=== PATIENT | female | born 1935 | race Caucasian/White ===

== ENCOUNTER 2021-02-26 14:42 | Inpatient (IN) | payer MEDICARE ==
[~2021-02-26 14:42] MED LIST: Iopamidol-370 76% 500 ML 1 ML ONE
[2021-02-26 15:22] LABS: Hemoglobin 12.3 g/dL (12.0-16.0); Mean Corpuscular Hemoglobin 26.4 pg (27.0-31.0); Mean Corpuscular Volume 82.7 fL (78.0-98.0); Mean Platelet Volume 8.4 fL (7.4-10.4); Platelet Count 199 thou/uL (130-400); RBC Distribution Width 14.6 % (11.5-14.5); Red Blood Cell (RBC) Count 4.66 mill/uL (4.20-5.40); White Blood Cell (WBC) Count 19.9 thou/uL (4.8-10.8)
[2021-02-26] MEDS ORDERED: cefTRIAXone\\ROCEPHIN 1 GM VIAL ONE (15:38)
[2021-02-26 15:42] LABS: ALT (SGPT) 7 U/L (8-55); AST (SGOT) 15 U/L (5-34); Albumin 3.2 g/dL (3.4-4.8); Alkaline Phosphatase 73 U/L (40-110); Anion Gap 12 mmol/L (10-20); BUN (Urea Nitrogen) 10 mg/dL (9.8-20.1); Bilirubin, Total 0.8 mg/dL (0.2-1.2); Calc. Creatinine Clearance 0 mL/min (70-130); Calcium 8.3 mg/dL (7.8-10.44); Carbon Dioxide 27 mmol/L (23-31); Chloride 99 mmol/L (98-107); Globulin 3.3 g/dL (2.4-3.5); Glucose 175 mg/dL (83-110); Potassium 3.6 mmol/L (3.5-5.1); Protein, Total 6.5 g/dL (5.8-8.1); Sodium 134 mmol/L (136-145)
[2021-02-26 15:44] LABS: Band 15 % (5-11); Lymphocytes 4 % (21-51); MDiff Complete? YES; Monocytes 5 % (0-10); Neutrophil 76 % (42-75); Platelet Morphology Comment Appears Adequate; RBC Morphology Normal
[2021-02-26] MEDS ORDERED: Azithromycin 500 MG VIAL ONE (16:39)
[2021-02-26 18:14] LABS: Lactic Acid 1.6 mmol/L (0.5-2.2)
[2021-02-26 19:31] VITALS: BMI 25.4
[2021-02-26] MEDS ORDERED: Guaifenesin DM 100-10/5 ML UDCUP PO PRN (19:35)
[2021-02-26] MEDS ORDERED: Ondansetron PF 4 MG/2 ML Vial IVP PRN (19:35)
[2021-02-26] MEDS ORDERED: Senokot S 8.6-50 MG TAB PO PRN (19:35)
[2021-02-26] MEDS ORDERED: Bisacodyl 5 MG TAB PO PRN (19:35)
[2021-02-26] MEDS ORDERED: Labetalol HCl 100 MG/20 ML VIAL SLOW IVP PRN (19:52)
[2021-02-26] MEDS ORDERED: Melatonin 3 MG TAB PO PRN (19:53)
[2021-02-26] MEDS ORDERED: Dextrose 5% in Water 1,000 ML IV PRN (19:54)
[2021-02-26] MEDS ORDERED: Dextrose 50% Abboject 50 ML SYRINGE SLOW IVP PRN (19:54)
[2021-02-26] MEDS: Sodium Chloride 0.9% 1,000 ML IV SCH (21:10)
[2021-02-26] MEDS: Famotidine/PF 20 mg/2ml Vial SLOW IVP SCH (21:14)
[2021-02-26] MEDS: Enoxaparin Sodium 40 MG/0.4 ML SYRINGE SC SCH (21:14)
[2021-02-27 06:58] LABS: #Lymphocytes 2.5 thou/uL (1.20-3.40); #Monocytes 1.4 thou/uL (0.11-0.59); #Neutrophils 13.9 thou/uL (1.40-6.50); %Basophils 0.3 % (0.0-1.0); %Eosinophils 0.2 % (0.0-10.0); %Lymphocytes 13.7 % (21.0-51.0); %Neutrophils 77.8 % (42.0-75.0); Hemoglobin 11.9 g/dL (12.0-16.0); Mean Corpuscular HGB CONC 30.7 g/dL (32.0-36.0); Mean Corpuscular Volume 84.8 fL (78.0-98.0); Mean Platelet Volume 8.7 fL (7.4-10.4); Platelet Count 194 thou/uL (130-400); RBC Distribution Width 14.6 % (11.5-14.5); Red Blood Cell (RBC) Count 4.56 mill/uL (4.20-5.40); White Blood Cell (WBC) Count 17.9 thou/uL (4.8-10.8)
[2021-02-27 07:18] LABS: Hemoglobin A1c 5.6 % (4.0-6.0)
[2021-02-27 07:25] LABS: ALT (SGPT) Less than 7 U/L (8-55); AST (SGOT) 14 U/L (5-34); Albumin 3.2 g/dL (3.4-4.8); Alkaline Phosphatase 75 U/L (40-110); Anion Gap 11 mmol/L (10-20); BUN (Urea Nitrogen) 8 mg/dL (9.8-20.1); Bilirubin, Total 0.6 mg/dL (0.2-1.2); Calc. Creatinine Clearance 62 mL/min (70-130); Calcium 8.5 mg/dL (7.8-10.44); Carbon Dioxide 26 mmol/L (23-31); Cardiac Risk 2.8 (Less than 4.5); Chloride 104 mmol/L (98-107); Cholesterol 108 mg/dl (< 200 Desired); Glucose 92 mg/dL (83-110); HDL Cholesterol 38 mg/dL (>60 Neg Risk); LDL Cholesterol, Calculated 59 mg/dL; Potassium 3.7 mmol/L (3.5-5.1); Protein, Total 6.2 g/dL (5.8-8.1); Sodium 137 mmol/L (136-145); Triglycerides 56 mg/dL (Less than 150)
[2021-02-27] MEDS: Enoxaparin Sodium 40 MG/0.4 ML SYRINGE SC SCH ×2 (08:47→21:00)
[2021-02-27] MEDS: Famotidine/PF 20 mg/2ml Vial SLOW IVP SCH (08:47)
[2021-02-27] MEDS: Sodium Chloride 0.9% 1,000 ML IV SCH (08:48)
[2021-02-27 09:19] LABS: SARS-CoV-2 PCR by NAA Not Detected (NotDetected)
[2021-02-27] MEDS ORDERED: Carvedilol 3.125 MG TAB PO SCH (10:15)
[2021-02-27 10:41] LABS: Bilirubin Negative (Negative); Blood, Urine Trace (Negative); Clarity Clear (Clear); Glucose, Urine (Dipstick) Normal (Negative); Ketone, Urine Negative (Negative); Leukocyte 500 Leu/uL (Negative); Nitrite Negative (Negative); Protein, Urine (Dipstick) 20 mg/dL (Neg-Trace); Specific Gravity, Urine 1.039 (1.002-1.036); Squamous Epithelial 0-3 HPF (0-3); Urobilinogen Normal mg/dL (Less than 2)
[2021-02-27 10:42] LABS: Bacteria/HPF 1+ HPF (None Seen); WBC/HPF 21-50 HPF (0-3)
[2021-02-27 10:43] LABS: Urine Culture Reflex Yes Yes
[2021-02-27] MEDS: busPIRone HCl 5 MG TAB PO SCH ×2 (16:13→21:01)
[2021-02-27] MEDS: cefTRIAXone\\ROCEPHIN 1 GM in Sodium Chloride 0.9% 100 ML IVPB SCH (16:13)
[2021-02-27] MEDS: Azithromycin 500 MG in Sodium Chloride 0.9% 250 ML 250 ML IVPB SCH (16:57)
[2021-02-27] MEDS: Mirtazapine 15 MG Soltab PO SCH (21:01)
[2021-02-27] MEDS: Carvedilol 3.125 MG TAB PO SCH (21:02)
[2021-02-28 04:53] LABS: #Eosinphils 0.1 thou/uL (0.0-0.7); #Lymphocytes 2.1 thou/uL (1.20-3.40); #Monocytes 1.3 thou/uL (0.11-0.59); #Neutrophils 9.6 thou/uL (1.40-6.50); %Basophils 0.2 % (0.0-1.0); %Eosinophils 0.7 % (0.0-10.0); %Neutrophils 73.2 % (42.0-75.0); Hemoglobin 10.8 g/dL (12.0-16.0); Mean Corpuscular HGB CONC 29.9 g/dL (32.0-36.0); Mean Corpuscular Hemoglobin 25.5 pg (27.0-31.0); Mean Corpuscular Volume 85.2 fL (78.0-98.0); Mean Platelet Volume 8.3 fL (7.4-10.4); Platelet Count 201 thou/uL (130-400); RBC Distribution Width 14.7 % (11.5-14.5); Red Blood Cell (RBC) Count 4.24 mill/uL (4.20-5.40); White Blood Cell (WBC) Count 13.1 thou/uL (4.8-10.8)
[2021-02-28 05:11] LABS: Anion Gap 8 mmol/L (10-20); BUN (Urea Nitrogen) 8 mg/dL (9.8-20.1); Calc. Creatinine Clearance 71 mL/min (70-130); Calcium 8.4 mg/dL (7.8-10.44); Carbon Dioxide 30 mmol/L (23-31); Chloride 101 mmol/L (98-107); Glucose 88 mg/dL (83-110); Potassium 3.7 mmol/L (3.5-5.1); Sodium 135 mmol/L (136-145)
[2021-02-28] MEDS: Levothyroxine Sodium 88 MCG TAB PO SCH (06:30)
[2021-02-28] MEDS: Enoxaparin Sodium 40 MG/0.4 ML SYRINGE SC SCH ×2 (09:31→20:51)
[2021-02-28] MEDS: Losartan 25 MG TAB PO SCH (09:31)
[2021-02-28] MEDS: busPIRone HCl 5 MG TAB PO SCH ×3 (09:32→20:50)
[2021-02-28] MEDS: Carvedilol 3.125 MG TAB PO SCH ×2 (09:32→20:50)
[2021-02-28] MEDS: cefTRIAXone\\ROCEPHIN 1 GM in Sodium Chloride 0.9% 100 ML IVPB SCH (15:32)
[2021-02-28] MEDS: Acetaminophen 325 MG TAB PO PRN ×2 (15:34→20:50)
[2021-02-28] MEDS: Azithromycin 500 MG in Sodium Chloride 0.9% 250 ML 250 ML IVPB SCH (16:49)
[2021-02-28] MEDS: Mirtazapine 15 MG Soltab PO SCH (20:50)
[2021-03-01 05:13] LABS: #Basophils 0.1 thou/uL (0.0-0.2); #Eosinphils 0.2 thou/uL (0.0-0.7); #Lymphocytes 1.8 thou/uL (1.20-3.40); #Monocytes 1.1 thou/uL (0.11-0.59); #Neutrophils 7.2 thou/uL (1.40-6.50); %Basophils 0.5 % (0.0-1.0); %Eosinophils 1.8 % (0.0-10.0); %Lymphocytes 17.1 % (21.0-51.0); %Monocytes 10.7 % (0.0-10.0); %Neutrophils 69.9 % (42.0-75.0); Hemoglobin 12.1 g/dL (12.0-16.0); Mean Corpuscular HGB CONC 31.4 g/dL (32.0-36.0); Mean Corpuscular Hemoglobin 26.8 pg (27.0-31.0); Mean Corpuscular Volume 85.4 fL (78.0-98.0); Mean Platelet Volume 8.4 fL (7.4-10.4); Platelet Count 239 thou/uL (130-400); RBC Distribution Width 14.8 % (11.5-14.5); Red Blood Cell (RBC) Count 4.51 mill/uL (4.20-5.40); White Blood Cell (WBC) Count 10.2 thou/uL (4.8-10.8)
[2021-03-01] MEDS: Levothyroxine Sodium 88 MCG TAB PO SCH (05:17)
[2021-03-01 05:32] LABS: Anion Gap 10 mmol/L (10-20); BUN (Urea Nitrogen) 9 mg/dL (9.8-20.1); Calc. Creatinine Clearance 75 mL/min (70-130); Calcium 8.8 mg/dL (7.8-10.44); Carbon Dioxide 28 mmol/L (23-31); Chloride 101 mmol/L (98-107); Glucose 85 mg/dL (83-110); Potassium 3.9 mmol/L (3.5-5.1); Sodium 135 mmol/L (136-145)
[2021-03-01] MEDS: Acetaminophen 325 MG TAB PO PRN ×2 (08:47→18:56)
[2021-03-01] MEDS: Enoxaparin Sodium 40 MG/0.4 ML SYRINGE SC SCH ×2 (08:48→20:49)
[2021-03-01] MEDS: Carvedilol 3.125 MG TAB PO SCH ×2 (08:48→20:48)
[2021-03-01] MEDS: Losartan 25 MG TAB PO SCH (08:49)
[2021-03-01] MEDS: busPIRone HCl 5 MG TAB PO SCH ×3 (08:54→20:48)
[2021-03-01] MEDS ORDERED: Furosemide 40 MG/4 ML VIAL SLOW IVP SCH (09:15)
[2021-03-01] MEDS: cefTRIAXone\\ROCEPHIN 1 GM in Sodium Chloride 0.9% 100 ML IVPB SCH (17:59)
[2021-03-01] MEDS: Azithromycin 500 MG in Sodium Chloride 0.9% 250 ML 250 ML IVPB SCH (17:59)
[2021-03-01] MEDS: Mirtazapine 15 MG Soltab PO SCH (20:48)
[2021-03-01 21:08] VITALS: TEMP 98.2
[2021-03-01 23:31] VITALS: BP 145/67
[2021-03-02] MEDS ORDERED: FLU VACC QS2021-22(65YR UP)/PF 240 MCG/0.7 ML SYRINGE IM ONE (09:00)
== END 2021-03-02 00:26 | DRG 871 ==
LOC: ERS 14:42 → T4-B 16:57 → 2NO 23:50
PROVIDERS: ADMIT Internal Medicine; ATTEND Internal Medicine
DX: A41.9 Sepsis, unspecified organism (principal); J18.9 Pneumonia, unspecified organism; J96.01 Acute respiratory failure with hypoxia; N13.2 Hydronephrosis with renal and ureteral calculous obstruction; Q62.11 Congenital occlusion of ureteropelvic junction; N39.0 Urinary tract infection, site not specified; E03.9 Hypothyroidism, unspecified; I48.91 Unspecified atrial fibrillation; I50.9 Heart failure, unspecified; I25.10 Atherosclerotic heart disease of native coronary artery without angina pectoris; Z66 Do not resuscitate; Z96.643 Presence of artificial hip joint, bilateral; R73.9 Hyperglycemia, unspecified; G30.9 Alzheimer's disease, unspecified; F02.80 Dementia in other diseases classified elsewhere, unspecified severity, without behavioral disturbance, psychotic disturbance, mood disturbance, and anxiety; K21.9 Gastro-esophageal reflux disease without esophagitis; F32.A Depression, unspecified; F41.9 Anxiety disorder, unspecified; Z20.822 Contact with and (suspected) exposure to COVID-19; Z79.51 Long term (current) use of inhaled steroids; Z79.899 Other long term (current) drug therapy; Z86.16 Personal history of COVID-19; Z90.49 Acquired absence of other specified parts of digestive tract; Z90.710 Acquired absence of both cervix and uterus; Z86.711 Personal history of pulmonary embolism; Z88.0 Allergy status to penicillin
CPT/HCPCS: 36415; 36416; 71045; 74177; 80048; 80053; 80061; 81001; 83036; 83605; 85025; 86850; 86900; 86901; 87040; 87086; 93005; J0456; J0696; J1650; J1940; J3490; J7050; Q9967; S0028; U0003; U0005